=== PATIENT | male | born 1950 | race African-American/Black ===

== ENCOUNTER 2018-06-23 08:53 | Emergency (ER) | payer OTHER ==
[~2018-06-23] VITALS: Ht 172.7 cm; Wt 64.9 kg
--- NOTE | ~2018-06-23 | EKG ---
[place] [address] [facility] [place] [address] ELECTROCARDIOGRAM REPORT Name: MELANIE LANDEROS Room #: DEP Ashanti#: [id number] Admission: 06/23/18 Attend Phys: Discharge: 06/23/18 Date of : 50 Report #: [id number] THIS REPORT FOR: //name// [facility] ED Test Date: 2018-06-23 Test Time: 09:14:52 Pat Name: MELANIE LANDEROS Department: Room: Gender: M Program Support Assistant: ZAG : 1950 Requested By: Luis Fernando Martínez Order Number: [id number] MD: Sidney Parker Measurements Intervals [place] Rate: 62 P: 76 PA: 129 QRS: 78 QRSD: 91 T: 55 QT: 434 QTc: 441 Interpretive Statements Sinus rhythm Atrial premature complex Left atrial enlargement Left ventricular hypertrophy Compared to ECG 02/18/2012 20:00:39 Atrial premature complex(es) now present Electronically Signed On 06-24-2018 11:27:42 CDT by Sidney Parker [email or web address] <ELECTRONICALLY SIGNED> By: Sidney Parker MD, [facility] 06/24/18 1127 914 3 Sidney Parker MD, FACC /EPI
[~2018-06-23 08:53] MED LIST: ASPIRIN325 PO; CENTRUM SILVER1 EAC2 PO; CIALIS2.5 MG PO; CIALIS20 MG PO; DARVOCET-N 1001 EACH PO; LIPITOR10 MG PO; NOHOMEMEDICATIONS; ULTRAM 50MG TAB50 MG PO; ZOFRAN4 MG PO
[2018-06-23 09:11] LABS: ABSOLUTE NEUTROPHILS 5.4 thou/uL (1.4-8.2); BASOPHILS 0.5 % (0.0-2.0); EOSINOPHILS 0.2 % (0.0-3.0); HEMATOCRIT 41.6 % (42.0-52.0); HEMOGLOBIN 13.8 gm/dL (14.0-18.0); LYMPHOCYTES 20.9 % (24.0-44.0); MCH 28.2 pg (26.0-34.0); MCHC 33.1 g/dL (28.0-37.0); MCV 85.2 fL (80.0-100.0); MONOCYTES 7.4 % (1.0-8.0); PLATELET COUNT 249 thou/uL (150-400); RBC 4.88 mil/uL (4.50-6.00); RDW 13.9 % (10.5-14.5); WBC 7.6 thou/uL (4.0-11.0)
[2018-06-23 09:23] LABS: CALCIUM 9.8 mg/dL (8.5-10.1); CREATININE 1.3 mg/dL (0.7-1.3); POTASSIUM 4.1 mmol/L (3.5-5.1)
[2018-06-23 09:29] LABS: ALBUMIN 3.8 g/dL (3.4-5.0); TOTAL BILIRUBIN 0.5 mg/dL (<0.1-1.0)
[2018-06-23 10:42] LABS: URINE BILIRUBIN NEGATIVE (Negative); URINE BLOOD 2+ (Negative); URINE CLARITY CLEAR; URINE COLOR YELLOW; URINE GLUCOSE-RANDOM* NEGATIVE (Negative); URINE KETONES 1+ (Negative); URINE LEUKOCYTES-REFLEX NEGATIVE (Negative); URINE NITRITE-REFLEX NEGATIVE (Negative); URINE PROTEIN (DIPSTICK) NEGATIVE (Negative); URINE UROBILINOGEN 0.2 E.U./dl (0.2-1.0)
[2018-06-23 10:51] LABS: SQUAMOUS 0-3 Few /LPF (0-3)
[2018-06-23 10:52] LABS: CASTS None Seen /LPF (None Seen); MUCUS 4-6 Moderate strn/LPF (None Seen)
[2018-06-23 10:53] LABS: BACTERIA-REFLEX None Seen /HPF (None Seen); CRYSTALS None Seen /LPF (None Seen); URINE RBC 3-10 Few /HPF (0-2); URINE WBC-REFLEX 0-5 Rare /HPF (0-5)
[2018-06-23] MEDS ORDERED: ZOFRAN ODT4 MG PO (11:37)
[2018-06-23] MEDS ORDERED: CARAFATE 1 GM TA1 GM PO (11:37)
[2018-06-23] MEDS ORDERED: PROTONIX40 MG PO (11:37)
== END 2018-06-23 12:00 | disposition home or self-care (01) ==
LOC: ER 08:53
PROVIDERS: Emergency Medicine
DX: R10.13 Epigastric pain (principal); R11.2 Nausea with vomiting, unspecified; E78.00 Pure hypercholesterolemia, unspecified

== ENCOUNTER → 2021-09-30 | Outpatient (CLI) | payer OTHER ==
[~2021-09-30] MED LIST changes: +CARAFATE 1 GM TA1 GM PO; +PROTONIX40 MG PO; +ZOFRAN ODT4 MG PO
== END ==
LOC: LAB 10:07
PROVIDERS: ATTEND Student in an Organized Health Care Education/Training Program
DX: Z20.822 Contact with and (suspected) exposure to COVID-19 (principal)

== ENCOUNTER → 2021-10-01 | Outpatient (CLI) | payer OTHER ==
[~2021-10-01] VITALS: Ht 175.3 cm; Wt 64.4 kg
--- NOTE | 2021-10-02 14:01 | P ---
[facility] [place] [address] PROCEDURE REPORT Name: MELANIE LANDEROS [facility]: [id number] Admission: 10/01/21 Attend Phys: Steve Matias Discharge: Date of : 50 Report #: [id number] THIS REPORT FOR: cc: Seth Tinsley MD, Rene P. MD McElhinney, Christian C. MD ~ cc: Seth Tinsley MD DATE OF SERVICE: 10/01/2021 PROCEDURE PERFORMED: ____ biopsies. HISTORY OF PRESENT ILLNESS: The patient is a 71-year-old male with a family history of colon cancer in 3 relatives. Last colonoscopy was performed by my partner, Dr. Ocampo, in 2016. At that time, diverticulosis was noted with hemorrhoids, but no polyps. Plan is for repeat colonoscopy. DESCRIPTION OF PROCEDURE: The risks and benefits of the procedure were explained to the patient, those risks including but not limited to bleeding, perforation and the risk of sedation. He understood these risks and gave informed consent. Sedation was given using propofol per Anesthesia. Next, a digital rectal exam was initially performed, which was normal. Next, using a standard Olympus colonoscope, the scope was placed in the patient's anus and advanced under direct vision to the cecum. The overall prep was good. The cecum and ileocecal valve were normal in appearance. The ascending colon was normal. In the transverse colon, a 4 mm sessile polyp was noted. This was removed with cold forceps, otherwise normal. The descending colon was normal. A few small scattered diverticula were noted in the sigmoid colon. The rectal mucosa was normal. On retroflexion, small nonbleeding internal hemorrhoids were noted. The scope was then withdrawn and the procedure terminated. The patient tolerated the procedure well. IMPRESSION: 1. Small colonic polyp. 2. Mild sigmoid diverticulosis. 3. Internal hemorrhoids. 4. Otherwise, normal colonoscopy. RECOMMENDATIONS: 1. Await biopsy results. 2. Repeat colonoscopy in [address] [address] PROCEDURE REPORT Name: MELANIE LANDEROS Room #: REG VADIM Burrell#: [id number] Admission: 10/01/21 Attend Phys: Steve Matias Discharge: Date of : 50 Report #: [id number] Thank you for allowing me to participate in his care. <ELECTRONICALLY SIGNED> By: Steve Doe MD 10/02/21 1401 1015 02 Steve Doe MD /nt
--- NOTE | 2021-10-06 14:07 | PATH ---
[facility] [address] [place] [address] PATHOLOGY RPT PROCEDURE Name: TIAGO HERNANDEZ Room #: REG [facility] Jacey.#: [id number] Admission: 10/01/21 Date of : 50 Discharge: Report #: [id number] Path Case #: [id number] [facility] Accession Number: [id number] . 01 Material submitted: . colon - TRANSVERSE COLON POLYP. Modifiers: transverse . 01 Clinical history: . COLONOSCOPY HX OF POLYPS, FAMILY HX OF COLON CANCER INTERNAL HEMORRHOIDS . 02 Diagnosis: Colonic mucosa (transverse colon polyp): - Hyperplastic polyp. (DEVORA:cassy; 10/04/2021) [facility] 10/04/2021 1755 Local . 02 Comment: We find no evidence of high grade dysplasia or of malignancy. (DEVORA:cassy; 10/04/2021) . . 02 Electronically signed: . Nakul Callejas MD, Pathologist NPI- [id number] . 01 Gross description: . The specimen is received in formalin, labeled "Tiago Hernandez, transverse colon polyp". Received are 3 segments of pale bishop tissue ranging in size from 0.2-0.4 cm in maximum dimensions. The specimen is entirely submitted in cassette A1. ([facility]; 10/01/2021) NRI/NRI 10/01/2021 1910 Local . 02 Pathologist provided ICD-10: K63.5 . 02 CPT . 778662 Specimen Comment: A courtesy copy of this report has been sent to [phone] Specimen Comment: [phone] Specimen Comment: Report sent to / DR MONTEIRO Specimen Comment: A duplicate report has been generated due to demographic updates. Performed at: [address] [place] [address] PATHOLOGY RPT PROCEDURE Name: TIAGO HERNANDEZ Room #: REG CLLidia MariDonovan#: [id number] Admission: 10/01/21 Date of : 50 Discharge: Report #: [id number] Path Case #: [id number] [facility] [address] [place] [id number] MD Osmar Lynn MD Phone: [phone] Performed at: [address] [facility] [address] [id number] MD Nakul Callejas MD Phone: [phone]
== END | disposition home or self-care (01) ==
LOC: GI
PROVIDERS: ATTEND Specialist
DX: Z12.11 Encounter for screening for malignant neoplasm of colon (principal); Z80.0 Family history of malignant neoplasm of digestive organs; K63.5 Polyp of colon; K57.30 Diverticulosis of large intestine without perforation or abscess without bleeding; K64.8 Other hemorrhoids; Z98.890 Other specified postprocedural states; Z79.899 Other long term (current) drug therapy; Z87.891 Personal history of nicotine dependence
CPT/HCPCS: 62110; 62900